=== PATIENT | female | born 1950 | race American Indian/Alaskan Native ===

== ENCOUNTER 2025-04-19 11:41 | Emergency (ER) | payer MEDICARE, OTHER, SELFPAY ==
[2025-04-19 11:42] VITALS: BMI 29.9
--- NOTE | 2025-04-19 11:45 | EKG_ITS ---
[facility] Test Date: 2025-04-19 Pat Name: JASPER ZARATE Department: Room: - Gender: Female Hammer Smith: : 1950 Requested By: Ravi Nation Order Number: [id number] Reading MD: Ravi aNtion Measurements Intervals [place] Rate: 79 P: 19 TX: 174 QRS: -82 QRSD: 81 T: 32 QT: 355 QTc: 408 Interpretive Statements SINUS RHYTHM LOW QRS VOLTAGE IN PRECORDIAL LEADS [QRS DEFLECTION < 1.0 mV IN CHEST LEADS] LEFT ANTERIOR FASCICULAR BLOCK [QRS AXIS <= -45, QR IN I, RS IN II] POSSIBLE ANTERIOR MYOCARDIAL INFARCTION , OF INDETERMINATE AGE [30 ms Q WAVE IN V3/V4, OR R < 0.2 mV IN V4] Compared to ECG 10/24/2023 09:22:46 Low QRS voltage now present Left anterior fascicular block now present Myocardial infarct finding now present Sinus bradycardia no longer present /store/S0/[id number].pdf
--- NOTE | 2025-04-19 11:51 | EDNOTE_ITS ---
<Statement entered by Kenyetta Benson MD - 05/04/25 06:34> I, Kenyetta Benson MD, have reviewed the history, exam, and assessment of the patient. I have evaluated the patient independently and agree with the plan of care documented by [ ]. All diagnostic studies were reviewed and discussed. I confirm the diagnosis as documented by the Resident. I was present during the Medical Decision Making for this patient. The patient's plan of care was created between myself and the Resident and consistent with our discussion of the patient's case. ED General RME/HPI General Chief complaint: Chest Pain Stated complaint: CHEST/NECK PAIN X1DAY Time Seen by Provider: 04/19/25 11:49 Arrival date/time: 04/19/25 11:41 RME / HPI RME / HPI narrative: 75-year-old female with past medical history of hypertension, hyperlipidemia, and AAA comes into the ED with chief complaints of chest discomfort. Patient states that last night she started having some chest discomfort substernal that was sharp in nature and radiated to between her scapulas. Patient states that the pain has been constant ever since last night and does not get relief or worsening with exertion or changes in position. Patient states that she has to hold her chest when she has to stand up. She denies having any shortness of breath or diaphoresis. Otherwise patient denies all other associated symptoms Patient does have a family history positive for GA in her mother at 62 and sister at 60. Denies any active smoking, drugs, alcohol Related Data Home Medications ?Medication ?Instructions ?Recorded ?Confirmed atorvastatin 20 mg tablet 20 mg PO DAILY 05/24/2310/05 olmesartan 20 1 tab PO DAILY 05/24/2310/05 mg-hydrochlorothiazide 12.5 mg tablet ascorbic acid (vitamin C) 500 mg 500 mg PO QDAY 10/24/23 tablet (Vitamin C) aspirin 81 mg chewable tablet 81 mg PO QDAY 10/24/23 0 10/24/23 carvedilol 3.125 mg tablet 3.125 mg PO BID 10/24/23 Previous Rx's ?Medication ?Instructions ?Recorded hydrocodone 5 mg-acetaminophen 325 1 tab PO Q6H PRN pa in #7 tabs 08/28/23 mg tablet Allergies Allergy/AdvReac Type Severity Reaction Status Date / Time No Known Allergies Allergy Verified 04/19/25 11:44 Review of Systems Review of Systems Systems Reviewed: All systems reviewed, normal except as documented Past Medical History Past Medical History Comments PMH COMMENT: PMH: AAA, hypertension, hyperlipidemia Allergies: NKDA Social Hx: Denies any smoking, drugs, alcohol FMH: Positive for GA in mother and sister in the early 60s ED Exam Narrative Physical exam: Gen: A&O X 3, NAD HEENT: NCAT, EOMI, Pupils reactive REECE, not icteric. External ears normal. No rhinorrhea. Moist mucous membranes. Neck: Supple, full range of motion, no observable masses, No meningeal sign. Lungs: No Respiratory distress, clear bilateral. CV: RRR, no murmurs. Abdomen: Soft, nondistended, No rebound tenderness. MSK: No joint swelling, no redness, peripheral pulses presents, lumbar with no edema. Skin: No rashes, petechiae, lesions.. Neuro: No focal neurological deficits appreciated, sensory and motor intact. Psych: Cooperative, appropriate mood and effect. Course Quality Measures none Orders Category Date Time Status CT Screening NOW Care 04/19/25 12:36 Active EKG (ED ONLY) *Do not use* NOW Care 04/19/25 11:45 Completed IV [Insert IV] NOW Care 04/19/25 13:[address] angio chest abdomen pelvis Stat Exams 04/19/25 12:36 Completed CXR2 [XR chest 2V] Stat Exams 04/19/25 12:02 Completed EKG (ED Only) Stat Exams 04/19/25 11:45 Draft CBC Stat Lab 04/19/25 12:40 Completed CMP [Comprehensive Metabolic Panel] Stat Lab 04/19/25 12:40 Completed Lactic Acid [Lactate (Lactic Acid)] Stat Lab 04/19/25 12:40 Completed Procalcitonin Stat Lab 04/19/25 12:40 Completed Troponin I Stat Lab 04/19/25 12:40 Completed Piper/Tazo 3.375 gm Premix [Zosyn] Med 04/19/25 15:45 Discontinued 3.375 gm in 50 ml IV X1 Sodium Chloride 0.9% 1000 ml [Ns] 1,000 ml Med 04/19/25 15:45 Discontinued IV 999 mls/hr Vital Signs Vital signs: Vital Signs Temperature 98.6 F 04/19/25 12:02 Pulse Rate 83 04/19/25 12:02 Respiratory Rate 18 04/19/25 12:02 Blood Pressure 160/89 H 04/19/25 12:02 Pulse Oximetry (%) 96 04/19/25 12:02 Oxygen Delivery Method Room Air 04/19/25 12:02 Discharge Plan Plan Patient Disposition: HOME (Self Care) Prescriptions/Referrals Prescriptions/Med Rec: No Action atorvastatin 20 mg tablet 20 mg PO DAILY Patient Comments: TAKE 1 TABLET BY MOUTH EVERY DAY FOR CHOLESTEROL olmesartan-hydrochlorothiazide 20-12.5 mg tablet 1 tab PO DAILY Patient Comments: TAKE 1 TABLET BY MOUTH EVERY DAY hydrocodone-acetaminophen 5-325 mg tablet 1 tab PO Q6H MDD 3 PRN (Reason: pain) Qty: 7 0RF carvedilol 3.125 mg Tablet 3.125 mg PO BID Rx Instructions: must administer with a meal/food ascorbic acid (vitamin C) [Vitamin C] 500 mg Tablet 500 mg PO QDAY aspirin 81 mg Tablet,Chewable 81 mg PO QDAY Referrals: Anabell Hanley [Primary Care Provider] - In 1 week Problem List Clinical Impression: Atypical chest pain Patient/Caregiver Discharge Instructions Other Activity Instructions:: Follow-up primary care physician within 1 to 2 days Recommend outpatient follow-up with head of design or vascular surgeon for follow- up on AAA. Recommend outpatient workup for biliary colic You can take Tylenol every 6 hours as needed for pain for the next 2 to 3 days Come back to the ED if symptoms persist or worsen. Education Materials: Communicating About Pain, ED Chest Pain, Noncardiac Print Language: Citizen Of [place] Stand Alone Forms: Damaris Award Info., Patient Portal Info Letter MDM Narrative MDM hospital course: Patient was seen and evaluated upon arrival by myself. Diagnostic imaging and labs were ordered. CTA chest abdomen pelvis showed aneurysm dilation of his ascending thoracic aorta measuring 4.7 and cholelithiasis. At this time patient is stable enough to be discharged home. Will need follow- up primary care physician and with vascular surgeon or head of design outpatient. Case disclosed with Attending Dr. Kelley Corona PGY2 Disclaimer: Even though this this note was dictated by speech recognition and even though it was carefully revised there may still be minor errors in structural technician due to voice recognition software. Medication Administration(s) Medication Administration History Discontinued Medications Piperacillin/Tazobactam/Dextrose (Zosyn) 3.375 gm in 50 mls @ 100 mls/hr IV X1 ONE Stop: 04/19/25 16:14 Last Admin: 04/19/25 16:12 Dose: Not Given Documented By: EF Non-Admin Reason: Cancelled by Provider Sodium Chloride (Ns) 1,000 mls @ 999 mls/hr IV .Q1H1M ONE Stop: 04/19/25 16:45 Last Admin: 04/19/25 16:13 Dose: Not Given Documented By: EF Non-Admin Reason: Cancelled by Provider
[2025-04-19 12:02] VITALS: BP 160/89; PULSE 83; RESP 18; TEMP 37; O2SAT 96
--- NOTE | 2025-04-19 12:02 | XR_ITS ---
Examination: PA lateral chest 2 views Technique: Upright PA lateral chest 2 views Date and time: April 19, 2025 12:22 PM Indications: Chest pain today. Findings: Minimal prominence left ventricle. Ectatic thoracic aorta. No pneumonia or pulmonary edema. Impression: No pneumonia or pulmonary edema.
--- NOTE | 2025-04-19 12:36 | XR_ITS ---
Examination: CTA chest, with intravenous contrast. CTA abdomen, with intravenous contrast. CTA pelvis, with intravenous contrast. 2-D sagittal and coronal reconstructions. 3-D reconstructions. Date and time of exam: April 19, 2025 1511 hrs. Indications: Onset chest pain, sudden since last night, history aneurysmal dilatation ascending thoracic aorta 4.9 cm: CT chest with contrast August 28, 2023 CTDI vol (mgy) 14.3 DLP (MGycm) 904 Technique: Multiple CTA images, 2.0 mm slice thickness, obtained chest, abdomen, pelvis, with the high-resolution 64 slice scanner. 100 cc Isovue-370 is administered intravenously. Sagittal and coronal 2-D reconstructions are obtained. 3-D reconstructions, angiographic images are obtained. 3-D postprocessing, including vascular maximum intensity projections. Low dose protocols were performed. One or more of the following dose reduction techniques were used; automated exposure control, adjustment of the mA and/or KV according to patient size, use of iterative reconstruction technique. Findings: AP dimension ascending thoracic aorta 4.7 cm, no thoracic aortic dissection Pulmonary artery opacification is poor Mild enlargement cardiac contour No pneumonia, pulmonary edema or pleural disease Significant calcification left anterior descending left main left circumflex coronary arteries Liver is mildly irregular in contour Gallstones Gallbladder wall appears mildly thickened. Spleen is not enlarged No pancreatic or adrenal mass No renal or ureteral calculi, no hydronephrosis No abdominal aortic aneurysm dilatation or dissection Normal appendix No bowel obstruction or diverticulitis Atrophic uterus Urinary bladder intact Moderate to advanced disc narrowing L4-L5 Impression: Aneurysmal dilatation ascending thoracic aorta, AP dimension 4.7 cm No thoracic aortic dissection. No pulmonary artery emboli visualized. Heavy calcification left main left anterior descending left circumflex coronary arteries No pneumonia or pulmonary edema Cholelithiasis, recommend hepatobiliary sonography follow-up to exclude gallbladder wall thickening No abdominal aortic aneurysm dilatation or dissection.
[2025-04-19 12:45] LABS: Lactate (Lactic Acid) 0.7 mMol/L (0.4-2.0)
[2025-04-19 12:46] LABS: Basophils # (Auto) 0.1 Thou/mm3 (0.0-0.2); Basophils % (Auto) 1 % (0-2.5); Eosinophils # (Auto) 0.2 Thou/mm3 (0.0-0.5); Eosinophils % (Auto) 2 % (0-10); Hematocrit 40.0 % (36.0-46.0); Hemoglobin 13.1 g/dL (12.0-16.0); Immature Granulocytes Auto 0.03 Thou/mm3 (0.00-0.00); Lymphocytes # (Auto) 2.6 Thou/mm3 (1.0-4.8); Lymphocytes % (Auto) 26 % (10-50); Mean Corpuscular HGB Conc 32.8 g/dl (31.0-37.0); Mean Corpuscular Hemoglobin 30.3 pg (25.0-35.0); Mean Corpuscular Volume 92 fL (80-100); Monocytes # (Auto) 0.7 Thou/mm3 (0.0-0.8); Monocytes % (Auto) 7 % (0-12); Neutrophils # (Auto) 6.4 Thou/mm3 (1.8-7.7); Neutrophils % (Auto) 64 % (37-80); Nucleated Red Blood Cell # 0.00 Thou/mm3 (0.00-0.00); Nucleated Red Blood Cell % 0 /100 WBC (0); Platelet Count 227 Thou/mm3 (140-440); RDW Standard Deviation 46.7 fL (36.4-46.3); Red Blood Count 4.33 Miln/mm3 (4.00-5.20); White Blood Count 10.0 Thou/mm3 (3.6-11.0)
[2025-04-19 13:21] LABS: Alanine Aminotransferase 17 U/L (10-49); Albumin, Serum 4.5 gm/dL (3.4-4.8); Albumin/Globulin Ratio 1.6 (1.2-2.2); Alkaline Phosphatase 85 U/L (46-116); Anion Gap 12 (7-16); Aspartate Amino Transferase 18 U/L (0-34); BUN/Creatinine Ratio 8 Ratio (12-20); Bilirubin,Total 0.4 mg/dL (0.3-1.2); Blood Urea Nitrogen 8 mg/dL (9-23); Calcium 10.0 mg/dL (8.3-10.6); Calcium (Corrected) 10.0 mg/dL (8.5-10.1); Carbon Dioxide 20.6 mMol/L (20.0-31.0); Chloride 106 mMol/L (98-107); Creatinine (Component) 1.0 mg/dL (0.6-1.3); Estimated Creatinine Clearance 59.6 mL/min (>60); Globulin 2.8 gm/dL (2.3-3.5); Glucose 92 mg/dL (74-106); Osmolality,Calculated 275 (275-295); Potassium 4.0 mMol/L (3.4-5.1); Procalcitonin 0.06 ng/ml (0.0-0.49); Sodium 139 mMol/L (136-145); Total Protein 7.3 gm/dL (5.7-8.2); Troponin I < 0.002 ng/mL (0.0-0.045); eGFR 59 See Note
[2025-04-19 16:24] VITALS: BP 164/71; PULSE 69; RESP 17; TEMP 36.7; O2SAT 95
== END 2025-04-19 16:25 | disposition home or self-care (01) ==
PROVIDERS: Emergency Provider Emergency Medicine; PCP Internal Medicine
DX: R07.89 Other chest pain (principal); I10 Essential (primary) hypertension; E78.5 Hyperlipidemia, unspecified; Z82.49 Family history of ischemic heart disease and other diseases of the circulatory system; Z86.79 Personal history of other diseases of the circulatory system; Z79.899 Other long term (current) drug therapy
CPT/HCPCS: 36415; 71046; 71275; 74174; 80053; 83605; 84145; 84484; 85025; 93005; 99283; A4649; Q9967

== ENCOUNTER → 2025-08-19 | Outpatient (CLI) | payer MEDICARE, OTHER, SELFPAY ==
--- NOTE | 2025-08-19 11:00 | XR_ITS ---
Examination: Breast ultrasound complete, bilateral Date and time of exam: August, 1115 hours, comparison March 26, 2019 INDICATIONS: History left stereotactic breast biopsy negative for carcinoma 2015, mammogram April 17, 2000 1912 mm oval mass 12 o'clock position left breast Technique: Real-time grayscale ultrasonographic imaging bilateral breasts, including all 4 quadrants as well as nipple retroareolar and axillary regions. Findings: Sonographic images right breast 1:00 nodule circumscribed 6 x 4 mm 1:00 cyst 5 x 4 mm Sonographic images left breast 3:00 nodule circumscribed lobular margins 5 x 5 mm 3:00 nodule lobular margins 4 x 3 mm IMPRESSION: BI-RADS Category 3: Probably benign findings Recommend continued 6-month follow-up bilateral breast sonography to document stability of nodules described above
== END | disposition home or self-care (01) ==
LOC: CDIM 10:53
PROVIDERS: PCP Internal Medicine; Referring Provider Internal Medicine; Visit Provider Internal Medicine
DX: N63.25 Unspecified lump in the left breast, overlapping quadrants (principal); N63.21 Unspecified lump in the left breast, upper outer quadrant; Z80.3 Family history of malignant neoplasm of breast; Z87.898 Personal history of other specified conditions; Z98.890 Other specified postprocedural states
CPT/HCPCS: 76641